=== PATIENT | male | born 1995 | race African-American/Black ===

== ENCOUNTER 2022-09-04 09:45 | Emergency (ER) | payer OTHER ==
[~2022-09-04] VITALS: Ht 170.2 cm; Wt 63.4 kg
[2022-09-04 14:59] VITALS: BP 129/81
== END 2022-09-04 15:11 | disposition home or self-care (01) ==
LOC: M ED 09:45
DX: R07.89 Other chest pain (principal); R00.1 Bradycardia, unspecified